=== PATIENT | female | born 1955 | race Caucasian/White ===

== ENCOUNTER → 2016-09-27 | Outpatient (CLI) | payer BC ==
[~2016-09-27] MED LIST: LISI-729 PO
[2016-09-27 12:50] LABS: BASO % 0.9 %; BASO ABS # 0.07 K/uL (0-0.2); COMPLETE YES; EOS % 3.3 %; HEMATOCRIT 42.8 % (37-47); IG% 0.1 %; LYMPH % 34.6 %; LYMPH ABS # 2.59 K/uL (1.2-3.4); MEAN CELL VOLUME 93.4 fL (80-100); MEAN CORPUSCULAR HEMOGLOBIN 31.2 pg (25-34); MEAN CORPUSCULAR HGB CONC 33.4 g/dl (32-36); MEAN PLATELET VOLUME 12.4 fL (7.4-10.4); MONO % 9.1 %; PLATELET COUNT 262 K/uL (130-400); RED BLOOD COUNT 4.58 M/uL (4.2-5.4); WHITE BLOOD COUNT 7.48 K/uL (4.8-10.8)
[2016-09-27 13:27] LABS: ALT/SGPT 25 U/L (12-78); BLOOD UREA NITROGEN 18 mg/dl (7-18); BUN/CREATININE RATIO 18.6 (10-20); CARBON DIOXIDE 27 mmol/L (21-32); CHLORIDE 107 mmol/L (98-107); CHOLESTEROL 159 mg/dl (0-200); CREATININE 0.97 mg/dl (0.60-1.20); GLUCOSE 90 mg/dl (70-99); POTASSIUM 4.3 mmol/L (3.5-5.1); SODIUM 142 mmol/L (136-145); TRIGLYCERIDES 71 mg/dl (0-150); VERY LOW DENSITY LIPOPROT CALC 14 mg/dl
[2016-09-27 13:35] LABS: ALKALINE PHOSPHATASE 56 U/L (45-117); AST/SGOT 11 U/L (15-37); CHOLESTEROL/HDL RATIO 2.8; HDL CHOLESTEROL 56 mg/dl
== END | disposition home or self-care (01) ==
LOC: C.LABSPEC 12:09
PROVIDERS: ATTEND Internal Medicine
DX: Z00.01 Encounter for general adult medical examination with abnormal findings (principal); I10 Essential (primary) hypertension; R53.83 Other fatigue; E66.09 Other obesity due to excess calories

== ENCOUNTER → 2016-10-02 | Outpatient (CLI) | payer BC | END | disposition home or self-care (01) | LOC: C.LABSPEC 15:02 | PROVIDERS: ATTEND Internal Medicine | DX: Z12.11 Encounter for screening for malignant neoplasm of colon (principal) ==

== ENCOUNTER → 2017-01-29 | Outpatient (CLI) | payer BC ==
--- NOTE | 2017-01-29 15:09 | MAMMOGRAPHY REPORT ---
BILATERAL DIGITAL SCREENING MAMMOGRAM TOMOSYNTHESIS WITH CAD: 01/29/2017 CLINICAL HISTORY: Routine screening examination. TECHNIQUE: Breast tomosynthesis in addition to standard 2D mammography was performed. Current study was also evaluated with a Computer Aided Detection (CAD) system. COMPARISON: Comparison is made to exams dated: 01/20/2015 mammogram, 01/23/2016 mammogram, 4 mammogram, 01/16/2013 mammogram, 01/15/2012 mammogram, and 01/10/2011 mammogram - [facility]. BREAST COMPOSITION: There are scattered areas of fibroglandular density in both breasts. FINDINGS: There is a benign rim calcification in the right breast. No suspicious mass, architectural distortion or cluster of suspicious microcalcifications is seen. IMPRESSION: ACR BI-RADS CATEGORY 1: NEGATIVE There is no mammographic evidence of malignancy. A 1 year screening mammogram is recommended. The pa tient will receive written notification of the results. Approximately 10% of breast cancers are not detected with mammography. A negative mammographic report should not delay biopsy if a clinically suggestive mass is present. Jen Singleton M.D. ay/:01/29/2017 08:58:28 Surgical Instrument Mechanic: Carley RAMSAY([place])(M), [facility] letter sent: Normal 1/2 BI-RADS Code: ACR BI-RADS Category 1: Negative
== END | disposition home or self-care (01) ==
LOC: C.MAMM 08:20
PROVIDERS: ATTEND Obstetrics & Gynecology
DX: Z12.31 Encounter for screening mammogram for malignant neoplasm of breast (principal)

== ENCOUNTER 2017-10-06 08:35 | Emergency (ER) | payer BC ==
[~2017-10-06] VITALS: Ht 160 cm; Wt 79.9 kg
[2017-10-06 08:42] VITALS: TEMP 36.6; Ht 160 cm; Wt 79.9 kg
[2017-10-06] MEDS ORDERED: SODIUM CHLORIDE 0.9% 1000ML 1,000 ML IV STA ×2 (09:13)
[2017-10-06 09:24] LABS: BASO % 0.2 %; BASO ABS # 0.03 K/uL (0-0.2); HEMATOCRIT 43.1 % (37-47); HEMOGLOBIN 14.4 g/dL (12.0-16.0); IG# 0.04 K/uL (0.00-0.02); LYMPH % 11.7 %; LYMPH ABS # 1.82 K/uL (1.2-3.4); MEAN CELL VOLUME 91.7 fL (80-100); MEAN CORPUSCULAR HEMOGLOBIN 30.6 pg (25-34); MEAN CORPUSCULAR HGB CONC 33.4 g/dl (32-36); MEAN PLATELET VOLUME 11.6 fL (7.4-10.4); MONO % 4.3 %; MONO ABS # 0.67 K/uL (0.11-0.59); NEUT % 83.5 %; NEUT ABS # 12.97 K/uL (1.4-6.5); PLATELET COUNT 303 K/uL (130-400); RED CELL DISTRIBUTION WIDTH CV 13.5 % (11.5-14.5); RED CELL DISTRIBUTION WIDTH SD 45.3 fL (36.4-46.3); WHITE BLOOD COUNT 15.53 K/uL (4.8-10.8)
[2017-10-06 09:42] LABS: ALBUMIN 3.8 gm/dl (3.4-5.0); CALCIUM 8.9 mg/dl (8.5-10.1); CREATININE 0.93 mg/dl (0.60-1.20); POTASSIUM 3.9 mmol/L (3.5-5.1); TOTAL PROTEIN 7.9 gm/dl (6.4-8.2)
--- NOTE | 2017-10-06 09:43 | DIAGNOSTIC IMAGING REPORT ---
ABD/PELVIS NO IV OR ORAL CONT CT DOSE: 486.63 mGy.cm HISTORY: Pain severe lower abd pain, bloody stool TECHNIQUE: Multiaxial CT images of the abdomen and pelvis were performed without contrast. A dose lowering technique was utilized adhering to the principles of ALARA. COMPARISON STUDY: None. FINDINGS: Lung bases are clear. Liver spleen and pancreas are unremarkable. Kidneys negative for calcification or hydronephrosis. The bowel pattern is considered nonobstructive. Normal adrenal glands. Kidneys are negative for hydronephrosis. There are findings of proximal to mid sigmoid diverticulitis. Minimal pericolonic infiltrative change. No evidence for abscess collection or obstruction. IMPRESSION: 1. Mild acute proximal to mid sigmoid diverticulitis.. 2. No evidence for abscess collection or obstruction. 3. Remainder of the study is negative. The above report was generated using voice recognition software. It may contain grammatical, syntax or spelling errors. Electronically signed by: Sadi Glynn M.D. 10/06/2017 9:42 AM Dictated Date/Time: 10/06/2017 9:37 AM
--- NOTE | 2017-10-06 09:47 | DIAGNOSTIC IMAGING REPORT ---
R VENOUS DOPP LOWER EXT UNILAT CLINICAL HISTORY: right lower leg swelling pain. Edema. TECHNIQUE: Venous Doppler COMPARISON STUDY: None FINDINGS: Normal study IMPRESSION: Normal study The above report was generated using voice recognition software. It may contain grammatical, syntax or spelling errors. Electronically signed by: Sadi Glynn M.D. 10/06/2017 9:46 AM Dictated Date/Time: 10/06/2017 9:46 AM
[2017-10-06] MEDS ORDERED: METRONIDAZOLE 250 MG TAB PO STA (10:37)
[2017-10-06] MEDS ORDERED: CIPROFLOXACIN 500 MG TAB PO STA (10:37)
[2017-10-06] MEDS ORDERED: METR-163 PO (12:27)
[2017-10-06] MEDS ORDERED: CIPR-255 PO (12:27)
[2017-10-06 12:43] VITALS: BP 157/73; PULSE 57; O2SAT 95
--- NOTE | 2017-10-06 14:13 | EMERGENCY ROOM VISIT NOTE ---
History Report prepared by Elkin: Dayami Carmen Under the Supervision of: Dr. Popeye Akins M.D. First contact with patient: 09:02 Chief Complaint: RECTAL BLEEDING Stated Complaint: CRAMPING AND BLEEDING Nursing Triage Summary: Last night pt states she started having severe abdominal cramping and bloody diarrhea. No hx of this happening before. History of Present Illness The patient is a 61 year old female who presents to the Emergency Room with complaints of abdominal pain beginning at 2300 last night. She rates her pain at a 10/10 yesterday but states that it is at a 3/10 now. The patient reports having lower middle abdominal cramping since last night and cold sweats and nausea with the pain. She states that about correction through the night she also started to have bloody diarrhea. She reports having about 7 episodes of diarrhea and also reports feeling weak. The patient reports being around her grandson who has had diarrhea. She denies recently eating out anywhere. The patient reports a recent right leg injury and states that it has been swollen over the last two and a half weeks. The patient reports that she was placed on antibiotics for her leg and states that her swelling has gotten better this morning. The patient reports that this leg injury is the only new thing to happen to her recently and reports that she has never had rectal bleeding before. She reports a history of hypertension and a hysterectomy. She denies having chest pain, back pain, and shortness of breath. Source of History: patient Onset: 2300 last night Position: abdomen Symptom Intensity: rated at a 10/10, now a 3/10 Quality: cramping, other (pain) Associated Symptoms: + diaphoresis (cold sweats), + nausea, + diarrhea ( bloody), + weakness, No chest pain, No SOB, No back pain Review of Systems See HPI for pertinent positives and negatives. A total of ten systems were reviewed and were otherwise negative. Past Medical & Surgical Medical Problems: (1) HTN (hypertension) Surgical Problems: (1) S/P hysterectomy Family History Cancer Diabetes mellitus Gallbladder disease Heart disease Hypertension Lung disease Social History Smoking Status: Never Smoker Marital Status: Housing Status: lives with significant other Current/Historical Medications Scheduled Ciprofloxacin Hcl (Cipro), 500 MG PO BID Lisinopril (Zestril), 5 MG PO DAILY Metronidazole (Flagyl), 500 MG PO TID Allergies Coded Allergies: No Known Allergies (Unverified , 10/06/17) Physical Exam Vital Signs Date Time Temp Pulse Resp B/P (MAP) Pulse Ox O2 Delivery O2 Flow Rate FiO2 10/06/17 12:43 57 20 157/73 95 10/06/17 11:17 60 20 171/87 97 Room Air 10/06/17 10:07 61 16 151/89 98 Room Air 10/06/17 08:56 67 10/06/17 08:42 36.6 71 18 147/80 98 Room Air Physical Exam GENERAL: Awake, alert, well-appearing, in no distress HENT: Normocephalic, atraumatic. Oropharynx unremarkable. EYES: Normal conjunctiva. Sclera non-icteric. NECK: Supple. No nuchal rigidity. FROM. No masses. RESPIRATORY: Clear to auscultation. No wheezes. No rales. Normal respiratory effort. CARDIAC: Normal rate. Normal rhythm. No murmurs. No rubs. Extremities warm and well perfused. Pulses equal. No JVD. GI: Soft, non-distended. Left lower quadrant tenderness. No rebound or guarding. No masses. RECTAL: Deferred. MUSCULOSKELETAL: Atraumatic. Chest examination reveals no tenderness. The back is symmetrical on inspection without obvious abnormality. There is no CVA tenderness to palpation. No joint edema. LOWER EXTREMITIES: Calves are equal size bilaterally and non-tender. Right lower leg swelling, no bony tenderness, no calf tenderness. No discoloration. NEURO: Normal sensorium. No sensory or motor deficits noted. SKIN: No rash or jaundice noted. Medical Decision & Procedures ER Provider Diagnostic Interpretation: Radiology results as stated below per my review and radiologist interpretation: ABD/PELVIS NO IV OR ORAL CONT CT DOSE: 486.63 mGy.cm HISTORY: Pain severe lower abd pain, bloody stool TECHNIQUE: Multiaxial CT images of the abdomen and pelvis were performed without contrast. A dose lowering technique was utilized adhering to the principles of ALARA. COMPARISON STUDY: None. FINDINGS: Lung bases are clear. Liver spleen and pancreas are unremarkable. Kidneys negative for calcification or hydronephrosis. The bowel pattern is considered nonobstructive. Normal adrenal glands. Kidneys are negative for hydronephrosis. There are findings of proximal to mid sigmoid diverticulitis. Minimal pericolonic infiltrative change. No evidence for abscess collection or obstruction. IMPRESSION: 1. Mild acute proximal to mid sigmoid diverticulitis.. 2. No evidence for abscess collection or obstruction. 3. Remainder of the study is negative. The above report was generated using voice recognition software. It may contain grammatical, syntax or spelling errors. Electronically signed by: Sadi Glynn M.D. 10/06/2017 9:42 AM Dictated Date/Time: 10/06/2017 9:37 AM R VENOUS DOPP LOWER EXT UNILAT CLINICAL HISTORY: right lower leg swelling pain. Edema. TECHNIQUE: Venous Doppler COMPARISON STUDY: None FINDINGS: Normal study IMPRESSION: Normal study The above report was generated using voice recognition software. It may contain grammatical, syntax or spelling errors. Electronically signed by: Sadi Glynn M.D. 10/06/2017 9:46 AM Dictated Date/Time: 10/06/2017 9:46 AM Laboratory Results 10/06/17 09:15 Red Blood Count 4.70, Mean Corpuscular Volume 91.7, Mean Corpuscular Hemoglobin 30.6, Mean Corpuscular Hemoglobin Concent 33.4, Mean Platelet Volume 11.6, Neutrophils (%) (Auto) 83.5, Lymphocytes (%) (Auto) 11.7, Monocytes (%) (Auto) 4.3, Eosinophils (%) (Auto) 0.0, Basophils (%) (Auto) 0.2, Neutrophils # (Auto) 12.97, Lymphocytes # (Auto) 1.82, Monocytes # (Auto) 0.67, Eosinophils # (Auto) 0.00, Basophils # (Auto) 0.03 10/06/17 09:15 Test 10/06/17 09:00 10/06/17 09:15 Urine Color YELLOW Urine Appearance CLEAR (CLEAR) Urine pH 5.5 (4.5-7.5) Urine Specific [place] 1.031 (1.000-1.030) Urine Protein TRACE (NEG) Urine Glucose (UA) NEG (NEG) Urine Ketones TRACE (NEG) Urine Occult Blood NEG (NEG) Urine Nitrite NEG (NEG) Urine Bilirubin NEG (NEG) Urine Urobilinogen NEG (NEG) Urine Leukocyte Esterase MODERATE (NEG) Urine WBC (Auto) 10-30 /hpf (0-5) Urine RBC (Auto) 0-4 /hpf (0-4) Urine Hyaline Casts (Auto) 5-10 /lpf (0-5) Urine Epithelial Cells (Auto) 10-20 /lpf (0-5) Urine Bacteria (Auto) NEG (NEG) White Blood Count 15.53 K/uL (4.8-10.8) Red Blood Count 4.70 M/uL (4.2-5.4) Hemoglobin 14.4 g/dL (12.0-16.0) Hematocrit 43.1 % (37-47) Mean Corpuscular Volume 91.7 fL (80-100) Mean Corpuscular Hemoglobin 30.6 pg (25-34) Mean Corpuscular Hemoglobin Concent 33.4 g/dl (32-36) Platelet Count 303 K/uL (130-400) Mean Platelet Volume 11.6 fL (7.4-10.4) Neutrophils (%) (Auto) 83.5 % Lymphocytes (%) (Auto) 11.7 % Monocytes (%) (Auto) 4.3 % Eosinophils (%) (Auto) 0.0 % Basophils (%) (Auto) 0.2 % Neutrophils # (Auto) 12.97 K/uL (1.4-6.5) Lymphocytes # (Auto) 1.82 K/uL (1.2-3.4) Monocytes # (Auto) 0.67 K/uL (0.11-0.59) Eosinophils # (Auto) 0.00 K/uL (0-0.5) Basophils # (Auto) 0.03 K/uL (0-0.2) RDW Standard Deviation 45.3 fL (36.4-46.3) RDW Coefficient of Variation 13.5 % (11.5-14.5) Immature Granulocyte % (Auto) 0.3 % Immature Granulocyte # (Auto) 0.04 K/uL (0.00-0.02) Anion Gap 6.0 mmol/L (3-11) Est Creatinine Clear Calc Drug Dose 62.8 ml/min Estimated GFR () 76.3 Estimated GFR (Non- 65.9 BUN/Creatinine Ratio 20.4 (10-20) Calcium Level 8.9 mg/dl (8.5-10.1) Total Bilirubin 0.5 mg/dl (0.2-1) Direct Bilirubin 0.1 mg/dl (0-0.2) Aspartate Amino Transf (AST/SGOT) 20 U/L (15-37) Alanine Aminotransferase (ALT/SGPT) 27 U/L (12-78) Alkaline Phosphatase 57 U/L (45-117) Total Protein 7.9 gm/dl (6.4-8.2) Albumin 3.8 gm/dl (3.4-5.0) Lipase 118 U/L (73-393) Laboratory results reviewed by me Medications Administered Medications (Trade) Dose Ordered Sig/Ana Route Start Time Stop Time Status Last Admin Dose Admin Sodium Chloride 1,000 ml @ 125 mls/hr Q8H STAT IV 10/06/17 09:13 10/06/17 13:05 DC 10/06/17 11:15 125 MLS/HR Sodium Chloride 1,000 ml @ 999 mls/hr Q1H1M STAT IV 10/06/17 09:13 10/06/17 10:13 DC 10/06/17 09:27 999 MLS/HR Ciprofloxacin (Cipro Tab) 500 mg NOW STAT PO 10/06/17 10:37 10/06/17 10:38 DC 10/06/17 11:20 500 MG Metronidazole (Flagyl Tab) 500 mg NOW STAT PO 10/06/17 10:37 10/06/17 10:38 DC 10/06/17 11:20 500 MG ED Course 0912: The patient was evaluated in room B8. A complete history and physical exam was performed. 0913: Ordered Sodium Chloride 1000 ml @ 999 mls/hr IV, Sodium Chloride 1000 ml @ 125. mls/hr IV. 1037: Ordered Flagyl Tab 500 mg PO, Cipro Tab 500 mg PO. 1047: I checked on the patient and updated her. She is comfortable and got Cipro and Flagyl. 1220: I reevaluated the patient. She gave us a stool sample and is feeling well. Discussed results and discharge instructions: She verbalized understanding and agreement. The patient is ready for discharge. Medical Decision Prior records/ancillary studies reviewed. Triage Nursing notes reviewed and agree them. Additional history obtained from family. The patient's history was concerning for abdominal pain. Differential diagnosis: Etiologies such as infectious diarrhea, diverticulitis, PUD, biliary pathology , UTI, pancreatitis, obstruction, mesenteric ischemia, aortic pathology, infections, inflammatory bowel disease, renal colic, appendicitis, as well as others were entertained. Physical examination findings: As above. ER treatment provided: Normal saline hydration Patient declined analgesia Oral Cipro Oral Flagyl On reassessment the patient felt better. Diagnostics interpreted by me: The labs revealed a mild leukocytosis on CBC. No significant anemia. Chemistry panel unremarkable. Stool studies pending. Imaging studies: CT scan as above. Mild diverticulitis. The patient has mild diverticulitis. She noted more pain yesterday and the pain has improved today. She declined analgesia. She has had some mild cramping with blood in her loose stool. CT imaging reveals diverticulitis. There is no perforation or abscess. She will be treated with Cipro and Flagyl. She will need to follow-up closely with her primary physician. If she worsens in any way she will be back. Patient feels comfortable with this plan. By the evaluation outlined above other emergent etiologies such as those listed in the differential, as well as others, were deemed relatively unlikely. The patient was educated about the findings as listed above. All questions were answered and the patient was pleased with the treatment. Return instructions were outlined and the patient was discharged in stable condition. The patient was referred to her PCP for follow-up for a recheck of the current condition. Medication Reconcilliation Current Medication List: was personally reviewed by me Blood Pressure Screening Patient's blood pressure: Elevated blood pressure Blood pressure disposition: Referred to PCP Impression Primary Impression: Diverticulitis Additional Impression: Lower GI bleed Scribe Attestation The scribe's documentation has been prepared under my direction and personally reviewed by me in its entirety. I confirm that the note above accurately reflects all work, treatment, procedures, and medical decision making performed by me. Departure Information Dispostion Home / Self-Care Prescriptions Metronidazole (Flagyl) 500 Mg Tab 500 MG PO TID, #29 TAB Prov: Popeye Akins MD 10/06/17 Ciprofloxacin Hcl (CIPRO) 500 Mg Tab 500 MG PO BID, #19 TAB Prov: Popeye Akins MD 10/06/17 Referrals Jossue Lambert M.D. (PCP) Forms HOME CARE DOCUMENTATION FORM, IMPORTANT VISIT INFORMATION, WORK / SCHOOL INSTRUCTIONS Patient Instructions My [facility] Additional Instructions DIVERTICULITIS INSTRUCTIONS: Ciprofloxacin(Cipro) 500mg: Take one pill twice daily for 10 days for your bowel infection. All antibiotics can cause diarrhea. If this occurs and you feel worse or it does not resolve in 1-2 days follow up with your doctor or return to the Emergency Department as this could be signs of serious underlying problems. If you experience any pain in your tendons or any tendon injury return to the ER for re-evaluation. Any medication can cause an allergic reaction, stop the pills immediately and return to the ER for rash, hives, breathing difficulties, or swelling. Metronidazole(Flagyl) 500mg: Take one pill 3 times daily for 10 days for your bowel infection. DO NOT drink alcohol or take alcohol containing products with this medication. Any medication can cause an allergic reaction, stop the pills immediately and return to the ER for rash, hives, breathing difficulties, or swelling. Ibuprofen(Motrin, Advil) may be used for fever or pain. Use 600mg every six hours as needed. Take with food. Avoid using more than 2400mg in a 24 hour period. Do not use 2400mg per day for more than three consecutive days without physician direction. Prolonged inappropriate use can lead to stomach upset or ulcers. (AND/OR) Acetaminophen(Tylenol) may be used for fever or pain. Use 1000mg every six hours as needed. Avoid using more than 4000mg in a 24 hour period. Rest and drink plenty of fluids as tolerated. Slow sips of water or sports drinks are recommended instead of large amounts all at once. Continue current medications. Once your stomach is settled start with a clear liquid diet (jello, soup broth, etc.) and then advance as tolerated. You should avoid full, heavy meals for about 24 hrs from the time your symptoms resolved. Return to the ER immediately for worsening or persistent abdominal pain, vomiting, fevers, chest pains, difficulty breathing, black or bloody stools, worsening of your condition, or as needed. Follow up with your primary physician in 2-3 days for a recheck of your current condition and blood pressure. Problem Qualifiers
== END 2017-10-06 12:47 | disposition home or self-care (01) ==
LOC: C.EDB 08:36
DX: K57.32 Diverticulitis of large intestine without perforation or abscess without bleeding (principal); K92.2 Gastrointestinal hemorrhage, unspecified; I10 Essential (primary) hypertension; Z79.899 Other long term (current) drug therapy

== ENCOUNTER 2023-06-22 05:10 | Observation (INO) ==
--- NOTE | 2023-06-22 05:55 | Emergency Department Note ---
Impression & Plan Abdominal pain, Acute cholecystitis ED Provider Note ED Provider Note NAME: ALEXA WELCH AGE:67 SEX: Female : 1955 ARRIVES VIA: private vehicle INFORMANT: Patient ED PROVIDER(s): Steph Cantor DO CHIEF COMPLAINT: abdominal pain HPI: This is a 67-year-old female presents emergency room due to concern for abrupt onset of left upper quadrant abdominal pain. She states pain woke her up from sleep early this morning and she has been able to get comfortable. She states it starts in the left upper quadrant and wraps around into the left mid back. She denies any trauma or falls. She denies any recent change in urine or change in stools. She states she has had similar episodes intermittently over the course of the last year. She states that she was previously seen and evaluated here checked out her heart and told her it was not that. She states recently she did have a mild cold but felt improved. No recent new medications. PAST MEDICAL HISTORY:See Below PAST SURGICAL HISTORY:See Below FAMILY HISTORY:See Below SOCIAL HISTORY:See Below HOME MEDICATIONS:See Below ALLERGIES:See Below VITALS:See Below PHYSICAL EXAMINATION: GENERAL: alert, well appearing, well nourished, no distress, non-toxic EYE EXAM: normal conjunctiva, PERRL and EOM's grossly intact OROPHARYNX: no exudate, no erythema, lips, buccal mucosa, and tongue normal and mucous membranes are moist NECK: supple, no nuchal rigidity, no adenopathy, non-tender LUNGS: Clear to auscultation. Normal chest wall mechanics, no w/r/r HEART: no murmurs, S1 normal and S2 normal ABDOMEN: abdomen soft, left upper quadrant tenderness with palpation, normo- active bowel sounds, no masses, no rebound or guarding. BACK: Back is symmetrical on inspection and there is no deformity, no midline tenderness, no CVA tenderness. SKIN: no rashes, petechiae, orbruising UPPER EXTREMITIES: upper extremities are grossly normal. FROM, nml pulses b/l. LOWER EXTREMITIES: No pitting edema. FROM, nml pulses b/l. NEURO EXAM: Normal sensorium, cranial nerves II-XII grossly intact, normal speech, no facial droop,nogross weakness of arms, no gross weakness of legs. Gross sensation intact. No ataxia. Vital Signs: reviewed and remarkable Differential Diagnosis: PUD, gastritis, splenomegaly, pancreatitis, renal colic, pyelonephritis, colitis, bowel obstruction, ACS, pneumonia, as well as others were considered MEDICAL DECISION MAKING: This is a 67-year-old female who presents emergency department due to concern for left upper quadrant and epigastric abdominal pain. Patient states she has had intermittent similar pains over the course of the last year. She has never been able to pinpoint a trigger or pattern. Pain woke her up from sleep tonight and she could not get comfortable at home. She was afebrile vital signs stable on arrival. Labs drawn and sent, IV established, EKG performed at bedside interpreted by me and patient monitor on telemetry. She was started on IV fluids and given IV Tylenol, IV Protonix, and IV Toradol with improvement. She was sent for CT of the abdomen pelvis which was concerning for possible acute biliary pathology. In light of this an ultrasound was added. Following ultrasound patient was given IV morphine additionally due to persistent and worsening pain. Patient's ultrasound suggestive of acute cholecystitis. Patient was noted to have a leukocytosis although no abnormal LFTs. She was updated on all results and case discussed with on-call general surgery who came to evaluate the patient in the emergency room. Consultation(s): 08: Discussed with Dr. Bolden, gen surg. They will be down to evaluate the patient. ER Treatment Provided: See below Diagnostics Interpreted By Me: -ECG: Sinus bradycardia 58, normal axis, normal intervals, no acute ST/T wave changes -Cardiac Monitoring: An order was placed for continuous cardiac monitoring. The monitor shows a rate of 60 with normal sinus rhythm. -Laboratory studies: As stated above and show below. -Imaging studies: CT a/p: no sbo, no colitis Triage Nursing Note Reviewed Prior/Outside Records Reviewed Past Med/Surg History Social History Smoking Status: Never smoker Do You Dip or Chew Tobacco: No; Hx Alcohol Use: No Hx Substance Use: No Preferred Language: Wolof Communication Ability: Effective Java Developer Architect Required: No Beliefs That Will Affect Care: None Current Living Situation: Spouse Other Information That Helps Us Care for You: No Feels Safe at Home: Yes Safety Concerns: Feels Safe At This Time Assistive Devices: Glasses Allergies Allergies Allergy/AdvReac Type Severity Reaction Status Date / Time No Known Allergies Allergy Unknown Unverified 06/22/23 08:15 Home Meds Home Medications Medication Instructions Recorded Confirmed cinnamon bark 500 mg capsule 0 mg PO DAILY 06/22/23 06/22/23 (Cinnamon) docusate sodium 50 mg capsule 0 mg PO DAILY 06/22/23 06/22/23 lactobacillus combination no.4 3 0 mmu cells PO DAILY 06/22/23 06/22/23 billion cell capsule (Probiotic) lisinopril 10 mg tablet 10 mg PO QAM 06/22/23 06/22/23 Previous Rx's Medication Instructions Recorded oxycodone-acetaminophen 5 mg-325 1 - 2 tab PO .q4-6h PRN pain, for 06/22/23 mg tablet (Percocet) initial therapy, max 6 tabs per day #12 tabs Results & Data (ED) Vital Signs Vital Signs - 24 hr 06/22/23 05:12 06/22/23 05:24 06/22/23 06:00 Temperature 36.9 C Temperature Source Temporal Artery Scan Pulse Rate 60 60 58 L Pulse Rhythm Regular Pulse Strength Normal Respiratory Rate 18 18 Respiratory Effort / Characteristics Non-Labored Spontaneous Respiratory Depth Normal Respiratory Pattern Regular Blood Pressure 185/76 H 188/88 H Blood Pressure Mean 112 112 Blood Pressure Position Sitting Pulse Oximetry 99 97 Oxygen Delivery Method Room Air Sepsis Recent Fever Within 48 Hours No Sepsis New/Unexplained Change in Mental Status N/A Sepsis Action Taken by Nursing No Action Required Laboratory Data 06/22/23 05:29 06/22/23 05:29 Lab Results 06/22/23 Range/Units 05:29 WBC 15.93 H (4.8-10.8) K/ul RBC 4.78 (4.20-5.40) M/uL Hgb 14.5 (12.0-16.0) g/dl Hct 43.5 (37.0-47.0) % MCV 91.0 (80.0-100.0) fL MCH 30.3 (25.0-34.0) pg MCHC 33.3 (32.0-36.0) g/dL RDW Std Deviation 45.1 (36.4-46.3) fL RDW Coeff of Marjorie 13.3 (11.5-14.5) % Plt Count 251 (130-400) K/uL MPV 12.0 (9.4-12.4) fL Immature Gran % (Auto) 0.6 % Neut % (Auto) 80.5 % Lymph % (Auto) 12.2 % [place] % (Auto) 6.2 % Eos % (Auto) 0.1 % Baso % (Auto) 0.4 % Neut # (Auto) 12.83 H (1.40-6.50) K/uL Lymph # (Auto) 1.94 (1.20-3.40) K/uL [place] # (Auto) 0.98 H (0.11-0.59) K/uL Eos # (Auto) 0.02 (0.00-0.50) K/uL Baso # (Auto) 0.07 (0.00-0.20) K/uL Immature Gran # (Auto) 0.09 (0.01-0.20) K/uL Sodium 137 (136-145) mmol/L Potassium 3.8 (3.5-5.1) mmol/L Chloride 105 (98-107) mmol/L Carbon Dioxide 24 (21-32) mmol/L Anion Gap 8 (3-11) BUN 18 (6-23) mg/dl Creatinine 0.92 (0.6-1.2) mg/dl Est Cr Clr Drug Dosing 58.8 ml/min Est GFR ( Amer) 74.2 ml/min Est GFR (Non-Af Amer) 64.0 ml/min BUN/Creatinine Ratio 19.6 (10-20) Glucose 185 H (70-99(Fasting)) mg/dl Calcium 9.4 (8.6-10.3) mg/dl Magnesium 1.9 (1.7-2.4) mg/dl Total Bilirubin 0.5 (0.2-1.0) mg/dl AST 15 (13-39) U/L ALT 16 (7-52) U/L Alkaline Phosphatase 52 (34-104) U/L Troponin I High Sens 5.6 (0-14) pg/ml Total Protein 8.1 (6.0-8.3) gm/dl Albumin 4.4 (3.4-5.0) gm/dl Globulin 3.7 (2.5-4.0) gm/dl Albumin/Globulin Ratio 1.2 (0.9-2) Lipase 41 (11-82) U/L TSH 7.948 H (0.300-4.500) uIu/ml Free T4 0.78 (0.61-1.60) ng/dl Administered Medications Acetaminophen (Acetaminophen 325 Mg Tab) 650 mg PO Q6H PRN PRN Reason: Pain & Pre PT Stop: 07/22/23 16:21 Last Admin: 06/23/23 02:48 Dose: 650 mg Documented By: Admin: 06/22/23 20:42 Dose: 650 mg Documented By: NEIL Lactated Ringer's (Lr) 1,000 mls @ 80 mls/hr IV .[id number] CRISTINA Stop: 07/22/23 16:21 Last Admin: 06/23/23 05:57 Dose: 80 mls/hr Documented By: Infusion: 06/23/23 05:20 Dose: Infused Documented By: Admin: 06/22/23 16:50 Dose: 80 mls/hr Documented By: OLIVIA Cefoxitin Sodium 2,000 mg/ (Dextrose) 50 mls @ 100 mls/hr IV Q6H [facility]; Protocol Stop: 06/23/23 16:44 Last Infusion: 06/23/23 05:57 Dose: Infused Documented By: Admin: 06/23/23 04:02 Dose: 100 mls/hr Documented By: Infusion: 06/22/23 22:55 Dose: Infused Documented By: Admin: 06/22/23 22:15 Dose: 100 mls/hr Documented By: Infusion: 06/22/23 18:24 Dose: Infused Documented By: Admin: 06/22/23 17:07 Dose: 100 mls/hr Documented By: OLIVIA Oxycodone HCl (Oxycodone Hcl Ir 5 Mg Tab (Immediate Release)) 5 mg PO Q4H PRN PRN Reason: MODERATE Pain (4,5,6) & Pre PT Stop: 07/06/23 16:21 Last Admin: 06/23/23 05:59 Dose: 5 mg Documented By: NEIL Discontinued Medications Sodium Chloride (Nss) 1,000 mls @ 125 mls/hr IV .Q8H CRISTINA Stop: 07/22/23 05:44 Last Admin: 06/22/23 19:16 Dose: Not Given Documented By: Infusion: 06/22/23 17:18 Dose: Infused Documented By: Admin: 06/22/23 06:01 Dose: 125 mls/hr Documented By: OMER Acetaminophen (Ofirmev) 1,000 mg in 100 mls @ 400 mls/hr IV NOW STA Stop: 06/22/23 05:53 Last Infusion: 06/22/23 06:15 Dose: Infused Documented By: Admin: 06/22/23 05:58 Dose: 400 mls/hr Documented By: LAF Pantoprazole Sodium 40 mg/ (Syringe) 10 mls @ 5 mls/min IV NOW ONE Stop: 06/22/23 07:04 Last Admin: 06/22/23 07:38 Dose: 5 mls/min Documented By: GARY Cefoxitin Sodium (Mefoxin) 2,000 mg in 60 mls @ 100 mls/hr IV NOW STA Stop: 06/22/23 09:06 Last Infusion: 06/22/23 10:15 Dose: Infused Documented By: Admin: 06/22/23 09:25 Dose: 100 mls/hr Documented By: GARY Ioversol (Optiray 320 100ml) 93 ml IV ONCE ONE Stop: 06/22/23 06:32 Last Admin: 06/22/23 06:32 Dose: 93 ml Documented By: MARY LOU Ioversol (Ioversol 50ml) 5 ml IV ONCE ONE Stop: 06/22/23 13:08 Last Admin: 06/22/23 13:07 Dose: 5 ml Documented By: PARKER Ketorolac Tromethamine (Ketorolac Tromethamine 15 Mg/Ml Vial) 10 mg IV NOW ONE Stop: 06/22/23 07:04 Last Admin: 06/22/23 07:06 Dose: 10 mg Documented By: GARY Labetalol HCl (Labetalol Hcl Iv 5 Mg/Ml 20ml) Confirm Administered Dose 50 mg IV .STK-MED ONE Stop: 06/22/23 14:53 Last Admin: 06/22/23 17:19 Dose: Not Given Documented By: OLIVIA Lidocaine/Epinephrine (Lidocaine 1%/Epinephrine 1:100,000 20 Ml Vial) Confirm Administered Dose 30 ml .ROUTE .STK-MED ONE Stop: 06/22/23 11:52 Last Admin: 06/22/23 13:09 Dose: 10 ml Documented By: PARKER Menthol (Cough Drop (Sugar Free) Kerwin 24 Kerwin/1 Box) 1 kerwin BUCCAL NOW STA Stop: 06/22/23 17:18 Last Admin: 06/22/23 17:22 Dose: 1 kerwin Documented By: DLS Morphine Sulfate (Morphine Sulfate 4 Mg/Ml 1 Ml Carp\Vial) 4 mg IV NOW STA Stop: 06/22/23 07:21 Last Admin: 06/22/23 07:38 Dose: 4 mg Documented By: MES Morphine Sulfate (Morphine Sulfate 4 Mg/Ml 1 Ml Carp\Vial) 4 mg IV Q1H PRN PRN Reason: Pain Stop: 07/06/23 08:16 Last Admin: 06/22/23 11:01 Dose: 4 mg Documented By: Admin: 06/22/23 09:25 Dose: 4 mg Documented By: GARY Imaging Data Radiologist's Impression: Abdomen/Pelvis CT 06/22/23 05:39 CT SCAN OF THE ABDOMEN AND PELVIS WITH IV CONTRAST CLINICAL HISTORY: Left upper quadrant abdominal pain. COMPARISON STUDY: Abdominal CT dated 10/06/2017. TECHNIQUE: Following the IV administration of 93 cc of Optiray 320, CT scan of the abdomen and pelvis is performed from the lung bases to the proximal femora. Images are reviewed in the axial, sagittal, and coronal planes. IV contrast was administered without complication. A dose lowering technique was utilized adhering to the principles of ALARA. CT DOSE: 1400.08 mGy.cm FINDINGS: Lung bases: The heart is normal in size and without pericardial effusion. The lung bases are clear noting bibasilar atelectasis. There is a small hiatal hernia. Liver: The contrast-enhanced liver is normal in size, contour, and attenuation. There is no intrahepatic biliary ductal dilatation. The hepatic veins and portal veins are patent. Gallbladder: Question faint pericholecystic infiltration. Spleen: Normal in size and attenuation. Pancreas: Unremarkable. Adrenal glands: Unremarkable. Kidneys: The contrast enhanced kidneys are normal in size and without hydronephrosis. The kidneys enhance symmetrically. Renal sinus cysts are seen bilaterally. Abdominal vasculature: The abdominal aorta is normal in course and caliber noting [id number] atherosclerotic calcification. Bowel: There is mild sigmoid diverticulosis without CT evidence of acute diverticulitis. No bowel obstruction is seen. The appendix is well-visualized and normal. Peritoneum: There is no intraperitoneal free air or abdominal ascites. There is a fat-containing umbilical hernia. Lymphadenopathy: None. Pelvic viscera: The bladder is normal as visualized. The uterus is surgically absent. No adnexal lesion is seen. Skeletal structures: The skeletal structures are osteopenic. Mild degenerative change is noted in the spine. No lytic or blastic lesions are seen. IMPRESSION: 1. Question faint pericholecystic infiltration. If there is clinical concern for acute cholecystitis a right upper quadrant ultrasound should be obtained. 2. Mild sigmoid diverticulosis without CT evidence of acute diverticulitis. 3. Additional findings as above. ACT 112: Negative or not required by law. Electronically signed by: Iron Ramsay M.D. 06/22/2023 6:52 AM Gallbladder Ultrasound 06/22/23 07:03 ULTRASOUND RIGHT UPPER QUADRANT ABDOMEN CLINICAL HISTORY: Abnormal gallbladder seen by CT. Upper abdominal pain. COMPARISON STUDY: Abdominal CT dated 06/22/2023 TECHNIQUE: Real-time, grayscale, and color flow sonography of the right upper quadrant of the abdomen was performed. Images are reviewed in the transverse and longitudinal planes. FINDINGS: Liver: The liver is normal in size and echotexture. There is no intrahepatic biliary ductal dilatation. The main portal vein is patent. Gallbladder: The gallbladder is mildly distended and contains numerous stones and sludge. The gallbladder wall is thickened measuring up to 4 mm and there is trace pericholecystic fluid. A sonographic Stacy's sign could not be assessed as the patient received analgesia. The common bile duct measures up to 0.7 cm in diameter. Pancreas: Visualized portions of the pancreatic head and body are normal in appearance. The splenic vein is patent. Right kidney: Survey images of the right kidney demonstrate normal size and echotexture. There is no hydronephrosis. Renal sinus cysts are noted. Ascites: None. IMPRESSION: Cholelithiasis with findings suspicious for mild acute cholecystitis. Clinical and laboratory correlation will be required. If warranted a nuclear hepatobiliary scan would be confirmatory. ACT 112: Negative or not required by law. Electronically signed by: Iron Ramsay M.D. 06/22/2023 7:50 AM Discharge Plan Visit Data Chief Complaint: Abdominal Pain Stated Complaint: STOMACH PAIN, NAUSEA, VOMITING ED Provider: Steph Cantor Discharge Problem: Abdominal pain, Acute cholecystitis Patient Disposition: Admitted As Inpatient Discharge Instructions Interventions: ED Discharge Assessment Last Done: 06/22/23 11:23
[2023-06-22] MEDS: ACETAMINOPHEN 1,000 MG/100 ML VIAL IV STA (05:58)
[2023-06-22] MEDS: SODIUM CHLORIDE 0.9% 1,000 ML IV SCH (06:01)
[2023-06-22 06:12] LABS: Albumin Globulin Ratio 1.2 (0.9-2); Albumin Level 4.4 gm/dl (3.4-5.0); BUN Creatinine Ratio 19.6 (10-20); Bilirubin,Total 0.5 mg/dl (0.2-1.0); Calcium 9.4 mg/dl (8.6-10.3); Creatinine Clr Calc Pharmacy 58.8 ml/min; Est GFR (African American) 74.2 ml/min; Globulin 3.7 gm/dl (2.5-4.0); Magnesium 1.9 mg/dl (1.7-2.4); Potassium 3.8 mmol/L (3.5-5.1); Total Protein 8.1 gm/dl (6.0-8.3)
[2023-06-22 06:18] LABS: Troponin I High Sensitivity 5.6 pg/ml (0-14)
[2023-06-22 06:27] LABS: Thyroid Stimulating Hormone 7.948 uIu/ml (0.300-4.500)
[2023-06-22 06:32] LABS: Basophils # (auto) 0.07 K/uL (0.00-0.20); Basophils % (auto) 0.4 %; Eosinophils # (auto) 0.02 K/uL (0.00-0.50); Eosinophils % (auto) 0.1 %; Hematocrit (blood only) 43.5 % (37.0-47.0); Hemoglobin 14.5 g/dl (12.0-16.0); Immature Granulocytes # (auto) 0.09 K/uL (0.01-0.20); Immature Granulocytes % (auto) 0.6 %; Lymphocytes # (auto) 1.94 K/uL (1.20-3.40); Lymphocytes % (auto) 12.2 %; Mean Corpuscular Hemoglobin 30.3 pg (25.0-34.0); Mean Corpuscular Hgb Conc 33.3 g/dL (32.0-36.0); Monocytes # (auto) 0.98 K/uL (0.11-0.59); Monocytes % (auto) 6.2 %; Neutrophils # (auto) 12.83 K/uL (1.40-6.50); Neutrophils % (auto) 80.5 %; Platelet Count 251 K/uL (130-400); RDW Coefficient of Variation 13.3 % (11.5-14.5); RDW Standard Deviation 45.1 fL (36.4-46.3); Red Blood Count 4.78 M/uL (4.20-5.40); White Blood Count 15.93 K/ul (4.8-10.8)
[2023-06-22] MEDS: OPTIRAY 320 100ml IV ONE (06:32)
--- NOTE | 2023-06-22 06:55 | CT Scan Report ---
CT SCAN OF THE ABDOMEN AND PELVIS WITH IV CONTRAST CLINICAL HISTORY: Left upper quadrant abdominal pain. COMPARISON STUDY: Abdominal CT dated 10/06/2017. TECHNIQUE: Following the IV administration of 93 cc of Optiray 320, CT scan of the abdomen and pelvi s is performed from the lung bases to the proximal femora. Images are reviewed in the axial, sagittal , and coronal planes. IV contrast was administered without complication. A dose lowering technique wa s utilized adhering to the principles of ALARA. CT DOSE: 1400.08 mGy.cm FINDINGS: Lung bases: The heart is normal in size and without pericardial effusion. The lung bases are clear no ting bibasilar atelectasis. There is a small hiatal hernia. Liver: The contrast-enhanced liver is normal in size, contour, and attenuation. There is no intrahepa tic biliary ductal dilatation. The hepatic veins and portal veins are patent. Gallbladder: Question faint pericholecystic infiltration. Spleen: Normal in size and attenuation. Pancreas: Unremarkable. Adrenal glands: Unremarkable. Kidneys: The contrast enhanced kidneys are normal in size and without hydronephrosis. The kidneys enh ance symmetrically. Renal sinus cysts are seen bilaterally. Abdominal vasculature: The abdominal aorta is normal in course and caliber noting [id number] at herosclerotic calcification. Bowel: There is mild sigmoid diverticulosis without CT evidence of acute diverticulitis. No bowel obs truction is seen. The appendix is well-visualized and normal. Peritoneum: There is no intraperitoneal free air or abdominal ascites. There is a fat-containing umbi lical hernia. Lymphadenopathy: None. Pelvic viscera: The bladder is normal as visualized. The uterus is surgically absent. No adnexal lesi on is seen. Skeletal structures: The skeletal structures are osteopenic. Mild degenerative change is noted in the spine. No lytic or blastic lesions are seen. IMPRESSION: 1. Question faint pericholecystic infiltration. If there is clinical concern for acute cholecystitis a right upper quadrant ultrasound should be obtained. 2. Mild sigmoid diverticulosis without CT evidence of acute diverticulitis. 3. Additional findings as above. ACT 112: Negative or not required by law. Electronically signed by: Iron Ramsay M.D. 06/22/2023 6:52 AM
[2023-06-22 07:02] LABS: T4 Free Thyroxine 0.78 ng/dl (0.61-1.60)
[2023-06-22] MEDS: KETOROLAC TROMETHAMINE 15 MG/ML VIAL IV ONE (07:06)
[2023-06-22] MEDS: PANTOprazole 40 MG in SYRINGE 0 ML IV ONE (07:38)
[2023-06-22] MEDS: MoRPHine SULFATE 4 MG/ML 1 ML CARP\\VIAL IV STA (07:38)
--- NOTE | 2023-06-22 07:52 | Ultrasound Report ---
ULTRASOUND RIGHT UPPER QUADRANT ABDOMEN CLINICAL HISTORY: Abnormal gallbladder seen by CT. Upper abdominal pain. COMPARISON STUDY: Abdominal CT dated 06/22/2023 TECHNIQUE: Real-time, grayscale, and color flow sonography of the right upper quadrant of the abdomen was performed. Images are reviewed in the transverse and longitudinal planes. FINDINGS: Liver: The liver is normal in size and echotexture. There is no intrahepatic biliary ductal dilatatio n. The main portal vein is patent. Gallbladder: The gallbladder is mildly distended and contains numerous stones and sludge. The gallbla dder wall is thickened measuring up to 4 mm and there is trace pericholecystic fluid. A sonographic M urphy's sign could not be assessed as the patient received analgesia. The common bile duct measures u p to 0.7 cm in diameter. Pancreas: Visualized portions of the pancreatic head and body are normal in appearance. The splenic v ein is patent. Right kidney: Survey images of the right kidney demonstrate normal size and echotexture. There is no hydronephrosis. Renal sinus cysts are noted. Ascites: None. IMPRESSION: Cholelithiasis with findings suspicious for mild acute cholecystitis. Clinical and labora tory correlation will be required. If warranted a nuclear hepatobiliary scan would be confirmatory. ACT 112: Negative or not required by law. Electronically signed by: Iron Ramsay M.D. 06/22/2023 7:50 AM
--- NOTE | 2023-06-22 08:32 | History & Physical Report ---
Date of Service June 22, 2023 Assessment & Plan (1) Acute cholecystitis: Plan: This is a 67y F with no major past medical history who presents to the [facility] ED on 06/22/23 with complaints of abdominal pain with nausea/vomiting that worsened starting yesterday. She presented to the ER for evaluation where she underwent a CT a/p that showed questionably faint pericholecystic infiltration. Follow up with a RUQ US showed cholelithiasis with findings suspicious for mild acute cholecystitis. Patient denies any fevers/chills, CP/SOB, or change in bowel habits. Labs reveal a WBC of 15, hgb 14, cr 0.9, and LFTs are unremarkable with Tb 0.5, AST 15, ALT 16, lipase 41. Vital signs are stable with some hypertension noted. On exam patient's abdomen is soft, with discomfort elicited across the upper abdomen and R side. Based on imaging, history, exam consistent with gallb ladder etiology and concern for acute cholecystitis we will proceed with taking the patient to the OR for surgical intervention. Please keep NPO with IVF, pre- op IV Abx and SCDs ordered. Patient seen/examined wt Dr. Bolden who has obtained consent for a laparoscopic cholecystectomy with possible intraop cholangiogram this AM. History of Present Illness Primary Care Provider: Didi Adames MD This is a 67y F with no major past medical history who presents to the [facility] ED on 06/22/23 with complaints of abdominal pain with nausea/vomiting. Patient reports her pain started yesterday after eating a salad. Majority of her pain is located in the upper abdomen. She reports feeling pain like this before, but cannot pinpoint it to any specific food intake. She says lately it's been happening more frequently. Her pain was pretty constant over the last 12 hours and decided to come into the ER for further evaluation. In the ER she underwent a CT a/p that showed questionably faint pericholecystic infiltration. Follow up with a RUQ US showed cholelithiasis with findings suspicious for mild acute cholecystitis. Patient denies any fevers/chills, CP/SOB, or change in bowel habits. Last had some milk around midnight. Prior surgical history includes a hysterectomy. Allergies Allergy/AdvReac Type Severity Reaction Status Date / Time No Known Allergies Allergy Unknown Unverified 06/22/23 08:15 Home Medications Medication Instructions Recorded Confirmed Type cinnamon bark 500 mg capsule 0 mg PO DAILY 06/22/23 06/22/23 History (Cinnamon) docusate sodium 50 mg capsule 0 mg PO DAILY 06/22/23 06/22/23 History lactobacillus combination no.4 3 0 mmu cells PO DAILY 06/22/23 06/22/23 History billion cell capsule (Probiotic) lisinopril 10 mg tablet 10 mg PO QAM 06/22/23 06/22/23 History Past Med/Surg History Social History Smoking Status: Never smoker Preferred Language: Cypriot Feels Safe at Home: Yes Review of Systems Constitutional: no fever and no chills Respiratory: no dyspnea Cardiovascular: no chest pain Gastrointestinal: + abdominal pain (upper abdomen), + bloa ting, + nausea and + vomiting; no change in bowel habits Physical Exam Physical Exam: awake/alert, no distress Respiratory: normal respiratory effort Gastrointestinal (Abdomen): Inspection/Auscultation: abdomen not distended Percussion/Palpation: + abdomen tender (ttp across upper abdomen and RUQ) and abdomen soft Results & Data Results & Data Vital Signs (Past 12 Hours) Vital Signs Temp Pulse Resp BP Pulse Ox O2 Del Method 06/22/23 06:00 58 L 18 188/88 H 97 06/22/23 05:24 60 06/22/23 05:12 98.4 F 60 18 185/76 H 99 Room Air Diagnostic Findings CT SCAN OF THE ABDOMEN AND PELVIS WITH IV CONTRAST CLINICAL HISTORY: Left upper quadrant abdominal pain. COMPARISON STUDY: Abdominal CT dated 10/06/2017. TECHNIQUE: Following the IV administration of 93 cc of Optiray 320, CT scan of the abdomen and pelvis is performed from the lung bases to the proximal femora. Images are reviewed in the axial, sagittal, and coronal planes. IV contrast was administered without complication. A dose lowering technique was utilized adhering to the principles of ALARA. CT DOSE: 1400.08 mGy.cm FINDINGS: Lung bases: The heart is normal in size and without pericardial effusion. The lung bases are clear noting bibasilar atelectasis. There is a small hiatal hernia. Liver: The contrast-enhanced liver is normal in size, contour, and attenuation. There is no intrahepatic biliary ductal dilatation. The hepatic veins and portal veins are patent. Gallbladder: Question faint pericholecystic infiltration. Spleen: Normal in size and attenuation. Pancreas: Unremarkable. Adrenal glands: Unremarkable. Kidneys: The contrast enhanced kidneys are normal in size and without hydronephrosis. The kidneys enhance symmetrically. Renal sinus cysts are seen bilaterally. Abdominal vasculature: The abdominal aorta is normal in course and caliber noting [id number] atherosclerotic calcification. Bowel: There is mild sigmoid diverticulosis without CT evidence of acute diverticulitis. No bowel obstruction is seen. The appendix is well-visualized and normal. Peritoneum: There is no intraperitoneal free air or abdominal ascites. There is a fat-containing umbilical hernia. Lymphadenopathy: None. Pelvic viscera: The bladder is normal as visualized. The uterus is surgically absent. No adnexal lesion is seen. Skeletal structures: The skeletal structures are osteopenic. Mild degenerative change is noted in the spine. No lytic or blastic lesions are seen. IMPRESSION: 1. Question faint pericholecystic infiltration. If there is clinical concern for acute cholecystitis a right upper quadrant ultrasound should be obtained. 2. Mild sigmoid diverticulosis without CT evidence of acute diverticulitis. 3. Additional findings as above. ACT 112: Negative or not required by law. Electronically signed by: Iron Ramsay M.D. 06/22/2023 6:52 AM ULTRASOUND RIGHT UPPER QUADRANT ABDOMEN CLINICAL HISTORY: Abnormal gallbladder seen by CT. Upper abdominal pain. COMPARISON STUDY: Abdominal CT dated 06/22/2023 TECHNIQUE: Real-time, grayscale, and color flow sonography of the right upper quadrant of the abdomen was performed. Images are reviewed in the transverse and longitudinal planes. FINDINGS: Liver: The liver is normal in size and echotexture. There is no intrahepatic biliary ductal dilatation. The main portal vein is patent. Gallbladder: The gallbladder is mildly distended and contains numerous stones and sludge. The gallbladder wall is thickened measuring up to 4 mm and there is trace pericholecystic fluid. A sonographic Stacy's sign could not be assessed as the patient received analgesia. The common bile duct measures up to 0.7 cm in diameter. Pancreas: Visualized portions of the pancreatic head and body are normal in appearance. The splenic vein is patent. Right kidney: Survey images of the right kidney demonstrate normal size and echotexture. There is no hydronephrosis. Renal sinus cysts are noted. Ascites: None. IMPRESSION: Cholelithiasis with findings suspicious for mild acute cholecystitis. Clinical and laboratory correlation will be required. If warranted a nuclear hepatobiliary scan would be confirmatory ACT 112: Negative or not required by law. Electronically signed by: Iron Ramsay M.D. 06/22/2023 7:50 AM Supervising Physician Co-Signing Physician Notes As per Linsey Collins physician office support assistant Acute cholecystitis present situation discussed with the patient and recommended laparoscopic cholecystectomy cholangiogram risk and complication explained to her including bleeding infection converting to an open procedure and anticipated recovery time Permit signed All questions answered PG Care Time/CCT Total # of Minutes Spent Total Time Spent with Patient: Total time spent is greater than 50% in coordination of care (as documented) at patient's floor/unit and/or counseling patient: Coding Level of Care Code 39392 INT INP/OBS CARE 2/55MIN Diagnoses Acute cholecystitis K81.0
--- NOTE | 2023-06-22 09:16 | Anesthesiology Consultation ---
Date of Service June 22, 2023 Assessment & Plan Chart Review Chart Review: Acceptable Risk for Surgery and Patient NOT seen in Pre Admission Testing Consults Requested none ASA ASA2 Proposed Anesthesia Anesthesia Type: General History Surgery Operation Date: 06/22/23 10:00 Proposed Procedures p Laparoscopic Cholecystectomy - Nino Bolden MD, FACS Height/Weight Height: 5 ft 2 in Weight: 83.9 kg Allergies Allergy/AdvReac Type Severity Reaction Status Date / Time No Known Allergies Allergy Unknown Unverified 06/22/23 08:15 Medications Home Medications Medication Instructions Recorded Confirmed Last Taken cinnamon bark 500 mg capsule 0 mg PO DAILY 06/22/23 06/22/23 06/21/23 (Cinnamon) docusate sodium 50 mg capsule 0 mg PO DAILY 06/22/23 06/22/23 06/21/23 lactobacillus combination no.4 3 0 mmu cells PO DAILY 06/22/23 06/22/23 06/21/23 billion cell capsule (Probiotic) lisinopril 10 mg tablet 10 mg PO QAM 06/22/23 06/22/23 06/21/23 Active Medications Generic Name Dose Route Start Last Admin Trade Name Freq PRN Reason Stop Dose Admin Sodium Chloride 1,000 mls @ 125 mls/hr 06/22/23 05:45 06/22/23 06:01 Nss IV 07/22/23 05:44 125 mls/hr .Q8H CRISTINA Administration Past Medical History obese moderate ASCVD Aorta HLD HTN Exercise / Class Metabolic Activity II 4-5 Yardwork/Stairs/Walk up hill Past Anesthesia History No Hx of Anesthesia Complications and No Family Hx of Anesthesia Complications History of PONV No Hx of PONV and No Hx of Motion Sickness Social History Smoking Status: Never smoker Physical Exam Vital Signs Last Vital Signs Temp 36.9 C 06/22/23 05:12 Pulse 58 L 06/22/23 06:00 Resp 18 06/22/23 06:00 BP 188/88 H 06/22/23 06:00 Pulse Ox 97 06/22/23 06:00 O2 Del Method Room Air 06/22/23 05:12 Testing Laboratory Results 06/22/23 05:29 06/22/23 05:29 Electrocardiogram Date: 08/11/22 Findings: + NSR @ (@ 64;NS ST abnl)
[2023-06-22] MEDS ORDERED: fentaNYL citrate PF 100 MCG/2 ML VIAL IV PRN (09:17)
[2023-06-22] MEDS ORDERED: HYDROmorphone INJ 1 MG/ML SYRINGE IV PRN (09:17)
[2023-06-22] MEDS ORDERED: NALOXONE HCL 0.4 MG/1 ML VIAL/CARP IV PRN (09:17)
[2023-06-22] MEDS ORDERED: DROPERIDOL 5 MG/2 ML VIAL IV PRN (09:17)
[2023-06-22] MEDS ORDERED: ATROPINE SULFATE 0.1 MG/ML 10ML SYR IV PRN (09:17)
[2023-06-22] MEDS ORDERED: FLUMAZENIL 0.1 MG/1 ML 10 ML VIAL IV PRN (09:17)
[2023-06-22] MEDS ORDERED: LABETALOL HCL IV 5 MG/ML 20ML IV PRN (09:17)
[2023-06-22] MEDS ORDERED: ONDANSETRON INJ 2 MG/ML 2 ML VIAL IV PRN ×2 (09:17→16:22)
[2023-06-22] MEDS ORDERED: ePHEDrine sulfate 50 MG/ML AMP IV PRN (09:17)
[2023-06-22] MEDS: MoRPHine SULFATE 4 MG/ML 1 ML CARP\\VIAL IV PRN (09:25)
[2023-06-22] MEDS: cefOXitin 2,000 MG/60 ML BAG IV STA (09:25)
[2023-06-22] MEDS ORDERED: MIDAZOLAM HCL 1 MG/ML 2ML VIAL ONE (11:49)
[2023-06-22] MEDS ORDERED: fentaNYL citrate PF 100 MCG/2 ML VIAL ONE ×2 (11:50→12:39)
[2023-06-22] MEDS: IOVERSOL 50ml IV ONE (13:07)
[2023-06-22] MEDS: LIDOCAINE 1%/EPINEPHRINE 1:100,000 20 ML VIAL ONE (13:09)
--- NOTE | 2023-06-22 13:23 | Fluoroscopy Report ---
INTRAOPERATIVE RADIOGRAPH CLINICAL HISTORY: Intraoperative cholangiogram Fluoro time: 4 seconds Ka,r: 0.69 mGy FINDINGS: A single spot fluoroscopic view of the right upper quadrant from an intraoperative angiogra m as correlated with abdominal CT performed the same day 06/22/2023. The gallbladder surgically absent . There is good contrast opacification of the common bile duct. No filling defects are seen to sugges t choledocholithiasis. There is no intrahepatic biliary ductal dilatation. Contrast passes smoothly i nto the duodenum. IMPRESSION: Intraoperative cholangiogram images as above. Electronically signed by: Iron Ramsay M.D. 06/22/2023 1:21 PM
--- NOTE | 2023-06-22 13:41 | Post Operative Brief Note ---
Immediate Post Op Note v1 Date of Surgery June 22, 2023 Pre & Post Diagnosis Operation Date: 06/22/23 10:00 Pre-Op Diagnosis: Acute cholecystitis Post-Op Diagnosis: Acute cholecystitis I identified the patient and participated in the time-out.: Yes Procedure Operation Date: 06/22/23 10:00 Actual Procedures p Laparoscopic Cholecystectomy with Cholangiogram(Not Applicable) - Nino Bolden MD, FACS Surgeon Nino oBlden MD, FACS [employer] Martin ESPINOZA Estimated Blood Loss 10 Findings Consistent with Post-Op Diagnosis Drains Will-Keen Drain (19F)
--- NOTE | 2023-06-22 13:54 | Operative Report ---
PG Post Operative Report Pre & Post Diagnosis Operation Date: 06/22/23 10:00 Pre-Op Diagnosis: Acute cholecystitis Post-Op Diagnosis: Acute cholecystitis I identified the patient and participated in the time-out.: Yes Procedure Operation Date: 06/22/23 10:00 Actual Procedures p Laparoscopic Cholecystectomy with Cholangiogram(Not Applicable) - Nino Bolden MD, FACS [employer] Linsey Collins physician assistant professor of life sciences The patient was brought into the operating room theater general endotracheal anesthesia the abdomen was prepped Betadine solution properly draped systemic antibiotics on board patient identified timeout was had made a small incision supraumbilically sufficient to accommodate a Veress needle followed by 5 mm trocar insufflated to 8 mmHg followed by camera point of entry specter no injury then a 5 on direct visualization the right upper quadrant we could see the omentum draped over the gallbladder we could see the fundus appeared to be edematous and distended consistent with acute cholecystitis at this point 5 mm epigastric port was placed with preemptive local analgesic 1% Xylocaine and 2 subcostal ports on direct visualization the omentum that was draped over the gallbladder once we placed the patient in reverse Trendelenburg and rotated to the left we were able to just peel off mostly just blunt dissection sufficient enough that we were able then to place a needle to decompress the gallbladder we aspirated bilious type material not a significant amount apparently the aspirating needle would immediately get plugged suspicion of this patient has significant amount of stones and sludge the right upper quadrant trocar we were able to grasp the gallbladder where we initially went with the aspirating needle then elevated at using blunt dissection we freed the omentum that was encasing completely around the gallbladder down to its neck that was markedly edematous we able to just bluntly dissect out very easily to get a plane of dissection in the neck of the gallbladder neck was dilated send significantly suspicious that there may be an a stone embedded in that the cystic duct therefore you dissected distally were able to get around the cystic duct as it entered the common bile duct sufficiently created a window using a 5 mm clips we clipped the cystic duct at the takeoff of the gallbladder and a small opening was made in the cystic duct sufficiently enough that could accommodate a #4 urethral catheter that a transverse the abdominal wall and a 14 Angiocath x-rays were taken which showed free flow in duodenum no obvious common bile duct stones at this point the cholangiocatheter was then removed we are able to secure the cystic duct with 2 clips distal to her opening divided the cystic duct and dissected out found an anterior branch of the artery was doubly clipped proximally and distally and more cephalad was found a larger artery which was clipped proximally twice once distally and divided most of her dissection was done bluntly to elevate the gallbladder free to the plane wall which dissected out fairly easily few areas had smaller bleeders that we cauterized finally was elevated the gallbladder completely from the gallbladder fossa placed in an Endopouch and taken out intact through the epigastric port subhepatic suprahepatic area then were checked for stasis appears satisfactory we irrigated sufficiently there was no active bleeders but I elected to drain the subhepatic area with a 19 Swapnil drain which we placed taken out laterally to this right upper quadrant trocar site laterally touched the skin edge with 2-0 silk prior to doing that we placed the camera in the right upper quadrant lateral trocar to visualize the point of entry initially into the abdomen but no injury was identified individual trocars were then removed last the umbilical trocar fascial stitch with 2-0 Vicryl was used to close the epigastric trocar site it was 5 mm by to get the gallbladder out we enlarged it this patient had a large stone therefore fascial stitches was positioned and 4-0 Monocryl for the rest of the trocar sites and Steri-Strips applied procedure was tolerated well by the patient estimated blood loss 10 cc Addendum Linsey Collins physician assistant professor of life sciences was present throughout the procedure and helped the retraction exposure and wound closure Called at [phone] and left word on recorder that everything had gone well we would keep the patient overnight Surgeon Nino Bolden MD, FACS [employer] Martin ESPINOZA Estimated Blood Loss 10 Findings Consistent with Post-Op Diagnosis Acute cholecystitis Specimens Gallbladder: Drains 19 Swapnil subhepatic Complications Poor suction mechanism Indications Acute cholecystitis Description of Procedure merda I attest to the content of the Intraoperative Record and any orders documented therein. Any exceptions are noted below.
[2023-06-22] MEDS ORDERED: MoRPHine SULFATE 2 MG/ML CARP IV PRN (16:22)
[2023-06-22] MEDS ORDERED: oxyCODONE HCL IR 5 MG TAB (IMMEDIATE RELEASE) PO PRN (16:22)
[2023-06-22] MEDS ORDERED: MoRPHine SULFATE 4 MG/ML 1 ML CARP\\VIAL IV PRN (16:22)
[2023-06-22] MEDS: LACTATED RINGER'S 1,000 ML IV SCH (16:50)
[2023-06-22] MEDS: cefOXitin 2,000 MG in DEXTROSE 5 % MINI-B 50 ML IV SCH (17:07)
--- NOTE | 2023-06-22 17:08 | Anesthesiology Progress Note ---
Date of Service June 22, 2023 Anesthesia Post Procedure Vital Signs Vital Signs: Temp Pulse Pulse Pulse Resp BP BP 06/22/23 16:45 36.3 C L 58 L 16 146/79 H 06/22/23 16:15 36.5 C 55 L 14 133/83 06/22/23 16:00 54 L 15 147/72 H 06/22/23 15:50 53 L 17 154/67 H 06/22/23 15:40 54 L 16 155/73 H 06/22/23 15:30 55 L 15 152/72 H 06/22/23 15:20 59 L 17 140/62 06/22/23 15:10 36.5 C 60 18 153/78 H 06/22/23 15:00 72 20 150/71 H 06/22/23 14:50 74 15 149/62 H 06/22/23 14:40 78 18 176/86 H 06/22/23 14:30 80 16 169/71 H 06/22/23 14:20 80 16 155/77 H 06/22/23 14:10 81 19 132/67 06/22/23 14:00 37.3 C 81 15 131/65 06/22/23 06:00 58 L 18 188/88 H 06/22/23 05:24 60 06/22/23 05:12 36.9 C 60 18 185/76 H Pulse Ox O2 Del Method O2 Flow Rate 06/22/23 16:45 96 Room Air 06/22/23 16:15 96 Nasal Cannula 4 06/22/23 16:00 95 Nasal Cannula 4 06/22/23 15:50 95 Nasal Cannula 4 06/22/23 15:40 95 Nasal Cannula 4 06/22/23 15:30 96 Nasal Cannula 4 06/22/23 15:20 94 Nasal Cannula 4 06/22/23 15:10 94 Nasal Cannula 4 06/22/23 15:00 93 Nasal Cannula 4 06/22/23 14:50 99 Oxymask 6 06/22/23 14:40 98 Oxymask 8 06/22/23 14:30 95 Oxymask 8 06/22/23 14:20 95 Oxymask 10 06/22/23 14:10 94 Oxymask 10 06/22/23 14:00 93 Oxymask 10 06/22/23 06:00 97 06/22/23 05:24 06/22/23 05:12 99 Room Air Pain Intensity Abdomen: Pain Intensity: 8 Transfer of Care Handoff Completed per policy Notes Mental Status: alert / awake / arousable Patient Amnestic to Procedure: Yes Nausea / Vomiting: adequately controlled Pain: adequately controlled Airway Patency, RR, SpO2: stable & adequate BP & HR: stable & adequate Hydration State: stable & adequate Anesthetic Complications: no major complications apparent
[2023-06-22] MEDS: LABETALOL HCL IV 5 MG/ML 20ML IV ONE (17:19)
[2023-06-22] MEDS: COUGH DROP (SUGAR FREE) LOZ 24 LOZ/1 BOX BUCCAL STA (17:22)
[2023-06-22] MEDS: ACETAMINOPHEN 325 MG TAB PO PRN (20:42)
[2023-06-23] MEDS: oxyCODONE HCL IR 5 MG TAB (IMMEDIATE RELEASE) PO PRN (05:59)
[2023-06-23 07:24] LABS: Basophils # (auto) 0.04 K/uL (0.00-0.20); Basophils % (auto) 0.3 %; Hematocrit (blood only) 37.6 % (37.0-47.0); Hemoglobin 12.4 g/dl (12.0-16.0); Immature Granulocytes # (auto) 0.07 K/uL (0.01-0.20); Immature Granulocytes % (auto) 0.5 %; Lymphocytes # (auto) 2.05 K/uL (1.20-3.40); Lymphocytes % (auto) 13.2 %; Mean Corpuscular Hemoglobin 30.3 pg (25.0-34.0); Mean Corpuscular Volume 91.9 fL (80.0-100.0); Mean Platelet Volume 11.7 fL (9.4-12.4); Neutrophils # (auto) 11.65 K/uL (1.40-6.50); Platelet Count 239 K/uL (130-400); RDW Coefficient of Variation 13.9 % (11.5-14.5); RDW Standard Deviation 47.1 fL (36.4-46.3); Red Blood Count 4.09 M/uL (4.20-5.40); White Blood Count 15.51 K/ul (4.8-10.8)
[2023-06-23 07:37] LABS: Albumin Globulin Ratio 1.2 (0.9-2); Albumin Level 3.5 gm/dl (3.4-5.0); BUN Creatinine Ratio 14.9 (10-20); Bilirubin,Total 0.7 mg/dl (0.2-1.0); Calcium 8.9 mg/dl (8.6-10.3); Creatinine Clr Calc Pharmacy 57.5 ml/min; Est GFR (African American) 72.2 ml/min; Est GFR (Non-African American) 62.3 ml/min; Potassium 4.1 mmol/L (3.5-5.1); Total Protein 6.5 gm/dl (6.0-8.3)
[2023-06-23] MEDS: lisinopril 10 MG TAB PO SCH (08:26)
[2023-06-23] MEDS: DOCUSATE SODIUM 100 MG CAP PO ONE (09:47)
--- NOTE | 2023-06-23 12:46 | Surgery Progress Note ---
Date of Service June 23, 2023 Assessment & Plan (1) Acute cholecystitis: Plan: POD 1 lap jaciel tolerating diet no n/v VSS, MALINI drain with serosanguineous fluid Will D/c today with oral antibiotics Keep MALINI drain To follow up o/p this week with Dr. Bolden Admission and Anticipated Discharge Date Admission Date: June 22, 2023 Subjective tolerating reg diet pain controlled feeling better today Review of Systems Constitutional: no fever and no chills Respiratory: no dyspnea Cardiovascular: no chest pain Gastrointestinal: no bloating, no nausea and no vomiting Physical Exam Physical Exam: alert oriented Respiratory: normal respiratory effort and able to speak in complete sentences; no respiratory distress Cardiovascular: Rate/Rhythm: regular rate Gastrointestinal (Abdomen): Inspection/Auscultation: abdomen normal to inspection, + abdominal surgical incision and + abdominal surgical drain present (serosanguinous ); abdomen not distended Results & Data Vital Signs (Past 12 Hours) Vital Signs Temp Pulse Resp BP Pulse Ox O2 Del Method 06/23/23 07:45 Room Air 06/23/23 07:17 97.9 F 63 16 147/77 H 95 Room Air 06/23/23 02:55 98.1 F 67 16 120/67 93 Room Air PG Care Time/CCT Total # of Minutes Spent Total Time Spent with Patient: Total time spent is greater than 50% in coordination of care (as documented) at patient's floor/unit and/or counseling patient: Coding Level of Care Code 69603 Post Operative Follow-Up Diagnoses Acute cholecystitis K81.0
--- NOTE | 2023-06-23 15:06 | Discharge Summary ---
Date of Service June 23, 2023 Admission HPI Per Admitting Provider This is a 67y F with no major past medical history who presents to the [facility] ED on 06/22/23 with complaints of abdominal pain with nausea/vomiting. Patient reports her pain started yesterday after eating a salad. Majority of her pain is located in the upper abdomen. She reports feeling pain like this before, but cannot pinpoint it to any specific food intake. She says lately it's been happening more frequently. Her pain was pretty constant over the last 12 hours and decided to come into the ER for further evaluation. In the ER she underwent a CT a/p that showed questionably faint pericholecystic infiltration. Follow up with a RUQ US showed cholelithiasis with findings suspicious for mild acute cholecystitis. Patient denies any fevers/chills, CP/SOB, or change in bowel habits. Last had some milk around midnight. Prior surgical history includes a hysterectomy. Principal Diagnosis acute cholecystitis Discharge Exam alert oriented Respiratory normal respiratory effort and able to speak in complete sentences; no respiratory distress Cardiovascular Rate/Rhythm: regular rate Gastrointestinal (Abdomen) Inspection/Auscultation: abdomen normal to inspection, + abdominal surgical incision and + abdominal surgical drain present (serosanguinous ); abdomen not distended Discharge Data Allergies Allergy/AdvReac Type Severity Reaction Status Date / Time No Known Allergies Allergy Unknown Unverified 06/22/23 08:15 Procedures Performed Operation Date: 06/22/23 10:00 Actual Procedures p Laparoscopic Cholecystectomy with Cholangiogram(Not Applicable) - Nino Bolden MD, FACS Ordered Studies 06/22/23 [place] cholangiogram OR Routine 06/22/23 05:39 CT abd pelvis IV con only Stat 06/22/23 07:03 US gallbladder Stat Hospital Course (1) Acute cholecystitis: Patient presented to the [facility] ER 06/22/23 with c/o abdominal pain , nausea, and vomiting. In the ER she underwent a CT a/p that showed questionably faint pericholecystic infiltration. Follow up with a RUQ US showed cholelithiasis with findings suspicious for mild acute cholecystitis. The patient was taken to the operating room and underwent an urgent Laparoscopic Cholecystectomy with Intraoperative Cholangiogram. A Swapnil MALINI drain was placed while in the operating room and the patient was admitted to the hospital over night for care and observation. Her diet was advanced and she was tolerating without nausea and vomiting. Her pain was controlled with oral analgesics. Her Vital signs remained stable throughout her entire stay. On post operative day one 06/23/23 she was deemed stable for discharge. She was discharged with a prescription of oral analgesics, and antibiotics. She was given discharge and drain care instruc tions. She verbalized understanding of instructions, follow up appointments and return precautions. All questions answered. Total Time Total Time Spent Total Time Spent (In Minutes): 30 Discharge Plan Discharge Items Patient Disposition: Home - Self-Care Reason For Visit: S/P LAP HAILY Discharge Diagnosis: laparoscopic cholecystectomy Activity: Per Instructions section Lifting: No more than 10 pounds Bathing Comment: no soaking in tubs/pools x 2 weeks Exercise/Sports: Wait until after follow-up appointment Driving/Machine Use: no driving while on narcotics for pain Non-emergency contact: Surgeon Call non-emergency contact if: you have any medication questions, your symptoms worsen, your pain is not controlled, you have a fever, your temperature is above 101.5, your wound has increased redness, your wound has increased drainage and your wound pain has increased Follow-up/Referrals: Nino Bolden MD, FACS [Surgeon] - (Please call to schedule follow up in clinic within 1 week) Didi Adames MD [Primary Care Provider] - Diet: Regular Addtl Attending Provider Instructions: You have small white bandages demolition specialist steri strips that are over your incisions. Do not shower with your MALINI drain in Care for your MALINI drain as you have been shown. Keep a record of its output and bring it with you to your follow up appointment. Take all of your antibiotic as instructed , even if you are feeling better. You had an elevated TSH level (7.9) while in the Hospital. This is a Thyroid hormone. You may follow up outpatient with your PCP to have this rechecked. Pending Studies at Discharge: Yes Studies:: surgical pathology Stand-Alone Forms: My [facility] Medications and DC Order Prescriptions: New oxycodone-acetaminophen [Percocet] 5-325 mg tablet 1 - 2 tab PO .q4-6h PRN (Reason: pain, for initial therapy, max 6 tabs per day) Qty: 12 0RF amoxicillin-pot clavulanate 875-125 mg tablet 1 tab PO Q12H 7 Days Qty: 14 0RF Continued docusate sodium 50 mg Capsule 0 mg PO DAILY Rx Instructions: Pt unsure of strength at this date/time. lisinopril 10 mg tablet 10 mg PO QAM cinnamon bark [Cinnamon] 500 mg Capsule 0 mg PO DAILY Rx Instructions: Pt unsure of strength at this date/time. Probiotic 3 billion cell Capsule 0 mmu cells PO DAILY Rx Instructions: administer with a meal. Pt unsure of strength at this date/time. Discharge Orders: Discharge Order (Routine); Ordered 06/23/23 Ordered By: Juanita Livingston Admission Data Admit Date/Time: 06/22/23 13:52 Attending Provider: Nino Bolden Admit Provider: Nino Bolden Primary Care Provider: Didi Adames Other Interventions: Discharge Summary Assessment (RN) Last Done: 06/23/23 13:47 Supervising Physician Co-Signing Physician Notes As per Linsey Collins physician assistant winemaker Acute cholecystitis present situation discussed with the patient and recommended laparoscopic cholecystectomy cholangiogram risk and complication explained to her including bleeding infection converting to an open procedure and anticipated recovery time Permit signed All questions answered Coding Level of Care Code 99566 IN/OBS DISCH 30 MIN/LESS Diagnoses Acute cholecystitis K81.0
--- NOTE | 2023-06-23 22:07 | Electrocardiogram Report ---
Test Reason : Blood Pressure : / mmHG Vent. Rate : 058 BPM Atrial Rate : 058 BPM P-R Int : 128 ms QRS Dur : 078 ms QT Int : 432 ms P-R-T Axes : 025 -03 043 degrees QTc Int : 424 ms Sinus bradycardia Otherwise normal ECG When compared with ECG of 11-AUG-2022 04:04, No significant change was found Confirmed by Tj Coleman ([id number]) on 06/23/2023 10:07:24 PM Referred By: REFERRED SELF Confirmed By:Tj Coleman
== END 2023-06-23 14:40 | disposition home or self-care (01) ==
LOC: ED 05:10 → OR 11:24 → 3W 11:24